=== PATIENT | female | born 1990 | race African-American/Black ===

== ENCOUNTER 2018-07-20 21:07 | Emergency (ER) | payer OTHER ==
[~2018-07-20] VITALS: Ht 165.1 cm; Wt 74.0 kg
[2018-07-21 00:41] VITALS: BP 143/69
[2018-07-21] MEDS: KETOROLAC 15MG/ML VIAL IM ONE (00:41)
== END 2018-07-21 02:58 | disposition home or self-care (01) ==
LOC: ER 21:07
DX: M25.511 Pain in right shoulder (principal); M25.531 Pain in right wrist; M54.2 Cervicalgia; R51 Headache
CPT/HCPCS: 29125; 73030; 73110; 73130; 81025; 99284; J1885; Z7610